=== PATIENT | male | born 1970 | race Caucasian/White ===

== ENCOUNTER 2020-05-22 00:05 | Emergency (ER) | payer OTHER ==
[~2020-05-22] VITALS: Ht 175.3 cm; Wt 97.5 kg
--- NOTE | 2020-05-22 00:10 | NUR ---
triaged and in chair A
[2020-05-22 00:11] VITALS: BP 174/84
[2020-05-22 00:20] VITALS: BP 174/84
--- NOTE | 2020-05-22 00:28 | NUR ---
Dr. Granger with pt for MSE.
--- NOTE | 2020-05-22 00:38 | NUR ---
pt discharged with VSS to [facility] officer Castillo #[id number]. discharge teaching given. opportunity to ask questions given.
== END 2020-05-22 00:38 ==
LOC: MED 00:05
DX: F10.129 Alcohol abuse with intoxication, unspecified (principal); Z02.89 Encounter for other administrative examinations; V89.2XXA Person injured in unspecified motor-vehicle accident, traffic, initial encounter; Y93.89 Activity, other specified; Y92.89 Other specified places as the place of occurrence of the external cause; Y99.8 Other external cause status
CPT/HCPCS: 99283